=== PATIENT | female | born 1955 | race Hispanic/Latino ===

== ENCOUNTER 2017-04-10 08:35 | Inpatient (IN) | payer OTHER ==
[~2017-04-10] VITALS: Ht 160 cm; Wt 45.6 kg
[~2017-04-10 08:35] MED LIST: ATOR-2 PO; CHOL50004 PO; INSU100V12 SQ; LIRA0.6P SQ; LISI-617 PO; SERT50TA12 PO
[2017-04-10] MEDS ORDERED: SODIUM CHLORIDE 0.9% 1000ML 1,000 ML IV ONE ×2 (08:52→09:08)
[2017-04-10 08:56] LABS: MEAN CORPUSCULAR HEMOGLOBIN 28.2 pg (27.0-33.0); MEAN CORPUSCULAR HGB CONC 32.5 g/dL (32.0-36.0); PLATELET COUNT (AUTO) 331 K/uL (130-400); RED BLOOD CELL COUNT(AUTO) 3.91 MIL/uL (4.00-5.50); RED CELL DISTRIBUTION WIDTH 16.1 % (11.0-15.5); WHITE BLOOD COUNT (AUTO) 11.7 K/uL (4.8-10.8)
[2017-04-10] MEDS ORDERED: ACETAMINOPHEN-CODEINE 300/30MG TAB ONE (08:58)
[2017-04-10] MEDS ORDERED: PROMETHAZINE HCL 25 MG/ML 1ML AMPULE IM ONE (09:08)
[2017-04-10] MEDS ORDERED: ONDANSETRON HCL 4 MG/2 ML VIAL ONE ×2 (09:08→10:18)
[2017-04-10] MEDS ORDERED: SODIUM CHLORIDE 0.9% 500ML 500 ML IV ONE (09:09)
[2017-04-10 09:15] LABS: BAND NEUTROPHILS % (MANUAL) 3 % (0-2); LYMPHOCYTES % (MANUAL) 2 % (22-44); MAN.DIFF COMMENT-IMPRESSION MANUAL DIFFERENTIAL; MONOCYTES % (MANUAL) 3 % (2-9); PLATELET MORPHOLOGY COMMENT ADEQUATE; SEGMENTED NEUTROPHILS % 92 % (40-70)
[2017-04-10 09:20] LABS: APPEARANCE,URINE Clear (CLEAR); BILIRUBIN,URINE Negative (NEGATIVE); COLOR,URINE Yellow (YELLOW); GLUCOSE, URINE (UA) >=1000 mg/dL (NEGATIVE); KETONES,URINE >=80 mg/dL (NEGATIVE); LEUKOCYTE ESTERASE ,URINE Negative (NEGATIVE); NITRATE,URINE Negative (NEGATIVE); OCCULT BLOOD,URINE Negative (NEGATIVE); PH,URINE 5.5 (5.0-8.0); PROTEIN,URINE POS 1+ (NEGATIVE); UROBILINOGEN,URINE 0.2 mg/dL (0.2-1.0)
[2017-04-10 09:24] LABS: BACTERIA,URINE Rare /HPF (None Seen); RBC,URINE 0-1 /HPF (0-1); SQUAMOUS EPITHELIAL CELL,UR Rare /LPF (0-2)
[2017-04-10 09:42] LABS: CREATININE 0.8 mg/dL (0.5-1.5); POTASSIUM 3.2 mmol/L (3.5-5.1)
[2017-04-10 09:47] LABS: ALBUMIN 2.5 g/dL (3.5-5.0); BILIRUBIN,TOTAL 0.7 mg/dL (0.2-1.0); TOTAL PROTEIN, SERUM 7.5 g/dL (6.0-8.3)
[2017-04-10] MEDS ORDERED: ASPIRIN 325 MG TABLET ONE (10:18)
[2017-04-10] MEDS ORDERED: ENOXAPARIN SODIUM 40 MG/0.4 ML SYRINGE SQ ONE (10:18)
[2017-04-10] MEDS ORDERED: LEVOFLOXACIN 500 MG/D5W 100 ML 100 ML ONE (10:41)
[2017-04-10] MEDS: SODIUM CHLORIDE 0.9% 1000ML 1,000 ML IV SCH (11:09)
[2017-04-10] MEDS ORDERED: GUAIFENESIN-DM 200/20 MG 10 ML PO PRN (11:15)
[2017-04-10] MEDS: LEVOFLOXACIN 500 MG/D5W 100 ML 100 ML IV SCH (11:15)
[2017-04-10] MEDS: METRONIDAZOLE 500MG/100ML BAG 100 ML IV SCH (11:15)
[2017-04-10] MEDS ORDERED: ACETAMINOPHEN 325 MG TAB PO PRN ×2 (11:15)
[2017-04-10] MEDS ORDERED: MORPHINE SULFATE 2 MG/ML 1ML SYG IV PRN (11:15)
[2017-04-10] MEDS ORDERED: PROCHLORPERAZINE EDISYLATE 10 MG/2 ML VIAL IV PRN (12:30)
[2017-04-10 13:41] VITALS: BP 106/66
[2017-04-10] MEDS ORDERED: ONDA8TAB11 PO (14:04)
[2017-04-10] MEDS ORDERED: CIPR500S4 PO (14:04)
[2017-04-10] MEDS ORDERED: METR500T PO (14:04)
[2017-04-10] MEDS ORDERED: AMYL1CAP61 PO (14:04)
[2017-04-10] MEDS ORDERED: ASPI-1114 PO (14:04)
[2017-04-10] MEDS ORDERED: PROC10TA13 PO (14:04)
[2017-04-10] MEDS ORDERED: PANT40TA25 PO (14:04)
[2017-04-10] MEDS ORDERED: DIPH1TAB24 PO (14:04)
[2017-04-10 16:37] VITALS: BP 100/69
[2017-04-10] MEDS: SODIUM CHLORIDE 0.9% 10 ML VIAL IV SCH (18:49)
[2017-04-10] MEDS ORDERED: METRONIDAZOLE 500MG/100ML BAG 100 ML ONE (19:51)
[2017-04-10] MEDS: FAMOTIDINE/PF 20 MG/2 ML VIAL IV SCH (21:00)
[2017-04-10] MEDS: CARVEDILOL 3.125 MG TABLET PO SCH (21:00)
[2017-04-10 21:20] LABS: CREATINE KINASE MB 6.3 ng/mL (0.5-3.6)
[2017-04-10 23:29] VITALS: BP 107/74
[2017-04-11] MEDS: ACETAMINOPHEN-CODEINE 300/30MG TAB PO PRN ×2 (00:47→09:57)
[2017-04-11] MEDS: SODIUM CHLORIDE 0.9% 1000ML 1,000 ML IV SCH ×3 (00:48→17:27)
[2017-04-11 03:00] VITALS: BP 104/75
[2017-04-11] MEDS: METRONIDAZOLE 500MG/100ML BAG 100 ML IV SCH ×3 (03:16→19:38)
[2017-04-11 03:57] LABS: HEMATOCRIT 29.9 % (36-48); MEAN CORPUSCULAR HEMOGLOBIN 28.7 pg (27.0-33.0); MEAN CORPUSCULAR HGB CONC 32.9 g/dL (32.0-36.0); MEAN CORPUSCULAR VOLUME 87.4 fL (79-99); PLATELET COUNT (AUTO) 287 K/uL (130-400); RED BLOOD CELL COUNT(AUTO) 3.42 MIL/uL (4.00-5.50); RED CELL DISTRIBUTION WIDTH 16.2 % (11.0-15.5); WHITE BLOOD COUNT (AUTO) 12.2 K/uL (4.8-10.8)
[2017-04-11 04:09] LABS: CREATININE 0.5 mg/dL (0.5-1.5); POTASSIUM 3.1 mmol/L (3.5-5.1)
[2017-04-11 08:00] VITALS: BP 115/79
[2017-04-11] MEDS: FAMOTIDINE/PF 20 MG/2 ML VIAL IV SCH ×2 (09:50→20:24)
[2017-04-11] MEDS: ASPIRIN 325 MG TABLET PO SCH (09:51)
[2017-04-11] MEDS: CARVEDILOL 3.125 MG TABLET PO SCH ×2 (09:56→20:34)
[2017-04-11] MEDS: SODIUM CHLORIDE 0.9% 10 ML VIAL IV SCH ×3 (10:03→18:10)
[2017-04-11] MEDS: LEVOFLOXACIN 500 MG/D5W 100 ML 100 ML IV SCH (10:04)
[2017-04-11 10:53] LABS: CREATINE KINASE MB 4.1 ng/mL (0.5-3.6)
[2017-04-11 10:56] LABS: TROPONIN I 2.14 ng/mL (0.00-0.06)
[2017-04-11 11:45] VITALS: BP 109/73
[2017-04-11] MEDS: ONDANSETRON HCL 4 MG/2 ML VIAL IV PRN (12:40)
[2017-04-11] MEDS ORDERED: POTASSIUM CHLORIDE 20 MEQ ERTAB PO PRN (13:00)
[2017-04-11 13:18] LABS: CREATININE 0.7 mg/dL (0.5-1.5); POTASSIUM 3.9 mmol/L (3.5-5.1)
[2017-04-11] MEDS ORDERED: ONDANSETRON 4 MG TABLET PO SCH (14:00)
[2017-04-11] MEDS ORDERED: SERTRALINE HCL 50 MG TABLET ONE (15:25)
[2017-04-11] MEDS: SERTRALINE HCL 50 MG TABLET PO SCH (15:28)
[2017-04-11 15:54] VITALS: BP 93/63
[2017-04-11] MEDS: ONDANSETRON HCL 4 MG/2 ML VIAL IVP SCH (17:23)
[2017-04-11 20:10] VITALS: BP 97/65
[2017-04-11] MEDS: LORAZEPAM 2 MG/ML 1 ML VIAL IVP PRN (21:08)
[2017-04-12] VITALS (8 sets, daily range): BP systolic 86–103; BP diastolic 46–67
[2017-04-12] MEDS: ONDANSETRON HCL 4 MG/2 ML VIAL IVP SCH ×5 (00:30→23:54)
[2017-04-12] MEDS: SODIUM CHLORIDE 0.9% 1000ML 1,000 ML IV SCH (00:30)
[2017-04-12] MEDS: SODIUM CHLORIDE 0.9% 10 ML VIAL IV SCH ×3 (03:13→18:45)
[2017-04-12] MEDS: METRONIDAZOLE 500MG/100ML BAG 100 ML IV SCH ×3 (03:13→19:30)
[2017-04-12 06:19] LABS: HEMATOCRIT 32.9 % (36-48); MEAN CORPUSCULAR HEMOGLOBIN 29.3 pg (27.0-33.0); MEAN CORPUSCULAR HGB CONC 32.6 g/dL (32.0-36.0); MEAN CORPUSCULAR VOLUME 89.8 fL (79-99); PLATELET COUNT (AUTO) 264 K/uL (130-400); RED BLOOD CELL COUNT(AUTO) 3.66 MIL/uL (4.00-5.50); RED CELL DISTRIBUTION WIDTH 16.2 % (11.0-15.5); WHITE BLOOD COUNT (AUTO) 10.4 K/uL (4.8-10.8)
[2017-04-12 06:26] LABS: CREATININE 0.8 mg/dL (0.5-1.5); POTASSIUM 4.3 mmol/L (3.5-5.1)
[2017-04-12] MEDS ORDERED: LISINOPRIL 5 MG TABLET PO SCH ×2 (09:00→21:00)
[2017-04-12] MEDS ORDERED: PROCHLORPERAZINE 10 MG PO PRN (09:00)
[2017-04-12] MEDS: [UNRECOGNIZED DRUG - OTHER] PO SCH (09:00)
[2017-04-12] MEDS: **HM** VIT D3 5000 UNITS PO SCH (09:00)
[2017-04-12] MEDS: ASPIRIN 325 MG TABLET PO SCH (09:54)
[2017-04-12] MEDS: CARVEDILOL 3.125 MG TABLET PO SCH ×2 (09:57→21:00)
[2017-04-12] MEDS: FAMOTIDINE/PF 20 MG/2 ML VIAL IV SCH ×2 (09:57→21:36)
[2017-04-12] MEDS: ATORVASTATIN CALCIUM 40 MG TABLET PO SCH (10:00)
[2017-04-12] MEDS: LEVOFLOXACIN 500 MG/D5W 100 ML 100 ML IV SCH (11:05)
[2017-04-12] MEDS: LORAZEPAM 2 MG/ML 1 ML VIAL IVP PRN (11:13)
[2017-04-12] MEDS: DOCUSATE SODIUM 100 MG CAP PO SCH ×2 (12:05→21:36)
[2017-04-12] MEDS ORDERED: INSLAN SQ (15:25)
[2017-04-12] MEDS ORDERED: DEXTROSE 50%-WATER 50 ML DISP.SYRIN IV PRN (16:15)
[2017-04-12] MEDS ORDERED: GLUCAGON 1MG KIT 1 MG ML IM PRN (16:15)
[2017-04-12] MEDS ORDERED: SODIUM CHLORIDE 0.9% 250 ML IV ONE ×2 (16:43→19:26)
[2017-04-12] MEDS: INSULIN HUMULIN R 100 UNIT/ML 3ML SQ SCH ×2 (17:17→21:39)
[2017-04-13] MEDS: SODIUM CHLORIDE 0.9% 10 ML VIAL IV SCH ×2 (02:15→10:15)
[2017-04-13 03:00] VITALS: BP 92/58
[2017-04-13] MEDS: METRONIDAZOLE 500MG/100ML BAG 100 ML IV SCH ×3 (03:20→23:10)
[2017-04-13] MEDS: LORAZEPAM 2 MG/ML 1 ML VIAL IVP PRN (03:30)
[2017-04-13] MEDS: ONDANSETRON HCL 4 MG/2 ML VIAL IVP SCH ×3 (05:52→17:30)
[2017-04-13 06:08] LABS: HEMATOCRIT 27.3 % (36-48); MEAN CORPUSCULAR HEMOGLOBIN 29.6 pg (27.0-33.0); MEAN CORPUSCULAR HGB CONC 33.3 g/dL (32.0-36.0); MEAN CORPUSCULAR VOLUME 88.7 fL (79-99); PLATELET COUNT (AUTO) 203 K/uL (130-400); RED BLOOD CELL COUNT(AUTO) 3.08 MIL/uL (4.00-5.50); RED CELL DISTRIBUTION WIDTH 16.1 % (11.0-15.5); WHITE BLOOD COUNT (AUTO) 9.7 K/uL (4.8-10.8)
[2017-04-13] MEDS ORDERED: SODIUM CHLORIDE 0.9% 1000ML 1,000 ML IV ONE (06:10)
[2017-04-13 06:13] LABS: CREATININE 0.8 mg/dL (0.5-1.5)
[2017-04-13] MEDS: INSULIN HUMULIN R 100 UNIT/ML 3ML SQ SCH ×4 (07:30→21:00)
[2017-04-13 07:43] LABS: POTASSIUM 2.7 mmol/L (3.5-5.1)
[2017-04-13 08:00] VITALS: BP 108/61
[2017-04-13] MEDS: **HM** VIT D3 5000 UNITS PO SCH (09:00)
[2017-04-13] MEDS ORDERED: INSULIN GLARGINE 100 UNITS/ML 10 ML VIAL SQ SCH (09:00)
[2017-04-13] MEDS: DOCUSATE SODIUM 100 MG CAP PO SCH ×2 (09:06→21:00)
[2017-04-13] MEDS: SERTRALINE HCL 50 MG TABLET PO SCH (09:06)
[2017-04-13] MEDS: ASPIRIN 325 MG TABLET PO SCH (09:06)
[2017-04-13] MEDS: ATORVASTATIN CALCIUM 40 MG TABLET PO SCH (09:06)
[2017-04-13] MEDS: FAMOTIDINE/PF 20 MG/2 ML VIAL IV SCH ×2 (09:07→23:07)
[2017-04-13] MEDS: LIDOCAINE HCL-MPF 1% 2ML VIAL IVP PRN ×2 (09:08→14:08)
[2017-04-13] MEDS: POTASSIUM CHLORIDE 20MEQ/100ML 100 ML IV PRN ×2 (09:09→14:08)
[2017-04-13 11:00] VITALS: BP 102/64
[2017-04-13] MEDS: [UNRECOGNIZED DRUG - OTHER] PO SCH (14:08)
[2017-04-13] MEDS: LEVOFLOXACIN 500 MG/D5W 100 ML 100 ML IV SCH (14:21)
[2017-04-13 16:00] VITALS: BP 100/63
[2017-04-13 19:50] VITALS: BP 92/60
[2017-04-13] MEDS: INSULIN GLARGINE 100 UNITS/ML 10 ML VIAL SQ SCH (21:00)
[2017-04-13 23:23] VITALS: BP 103/64
[2017-04-14] MEDS: ONDANSETRON HCL 4 MG/2 ML VIAL IVP SCH ×4 (01:09→17:36)
[2017-04-14 04:02] LABS: HEMATOCRIT 26.4 % (36-48); MEAN CORPUSCULAR HEMOGLOBIN 28.7 pg (27.0-33.0); MEAN CORPUSCULAR HGB CONC 33.2 g/dL (32.0-36.0); MEAN CORPUSCULAR VOLUME 86.6 fL (79-99); PLATELET COUNT (AUTO) 170 K/uL (130-400); RED BLOOD CELL COUNT(AUTO) 3.05 MIL/uL (4.00-5.50); RED CELL DISTRIBUTION WIDTH 15.9 % (11.0-15.5); WHITE BLOOD COUNT (AUTO) 5.4 K/uL (4.8-10.8)
[2017-04-14 04:05] VITALS: BP 93/53
[2017-04-14 04:18] LABS: CREATININE 0.6 mg/dL (0.5-1.5)
[2017-04-14 04:26] LABS: POTASSIUM 2.4 mmol/L (3.5-5.1)
[2017-04-14] MEDS: METRONIDAZOLE 500MG/100ML BAG 100 ML IV SCH ×3 (05:33→20:12)
[2017-04-14] MEDS: INSULIN HUMULIN R 100 UNIT/ML 3ML SQ SCH ×4 (06:26→21:00)
[2017-04-14] MEDS: POTASSIUM CHLORIDE 20MEQ/100ML 100 ML IV PRN ×3 (06:27→14:17)
[2017-04-14 08:00] VITALS: BP 94/64
[2017-04-14] MEDS: ATORVASTATIN CALCIUM 40 MG TABLET PO SCH (09:00)
[2017-04-14] MEDS: ASPIRIN 325 MG TABLET PO SCH (09:00)
[2017-04-14] MEDS: **HM** VIT D3 5000 UNITS PO SCH (09:00)
[2017-04-14] MEDS: [UNRECOGNIZED DRUG - OTHER] PO SCH (09:00)
[2017-04-14] MEDS: DOCUSATE SODIUM 100 MG CAP PO SCH ×2 (09:00→20:13)
[2017-04-14] MEDS: INSULIN GLARGINE 100 UNITS/ML 10 ML VIAL SQ SCH ×2 (09:00→21:00)
[2017-04-14] MEDS: SERTRALINE HCL 50 MG TABLET PO SCH (09:00)
[2017-04-14] MEDS: FAMOTIDINE/PF 20 MG/2 ML VIAL IV SCH ×2 (10:28→20:12)
[2017-04-14] MEDS: LEVOFLOXACIN 500 MG/D5W 100 ML 100 ML IV SCH (10:29)
[2017-04-14] MEDS: SODIUM CHLORIDE 0.9% 10 ML VIAL IV SCH ×2 (10:52→18:01)
[2017-04-14] MEDS: ONDANSETRON HCL 4 MG/2 ML VIAL IV PRN (10:52)
[2017-04-14 11:00] VITALS: BP 87/54
[2017-04-14] MEDS ORDERED: DEXAMETHASONE SOD PHOSPHATE 4 MG/ML 1ML VIAL IVP SCH (13:00)
[2017-04-14 16:00] VITALS: BP 97/60
[2017-04-14 19:52] LABS: CREATININE 0.6 mg/dL (0.5-1.5)
[2017-04-14 20:25] VITALS: BP 76/45
[2017-04-14 21:18] VITALS: BP 80/54
[2017-04-14] MEDS ORDERED: SODIUM CHLORIDE 0.9% 1000ML 1,000 ML IV SCH (22:00)
[2017-04-15] VITALS (14 sets, daily range): BP systolic 83–118; BP diastolic 47–69
[2017-04-15] MEDS: ONDANSETRON HCL 4 MG/2 ML VIAL IVP SCH ×4 (00:12→17:10)
[2017-04-15] MEDS: SODIUM CHLORIDE 0.9% 10 ML VIAL IV SCH ×3 (02:15→17:10)
[2017-04-15] MEDS: METRONIDAZOLE 500MG/100ML BAG 100 ML IV SCH ×3 (04:13→19:15)
[2017-04-15 05:12] LABS: HEMATOCRIT 25.9 % (36-48)
[2017-04-15 05:17] LABS: CREATININE 0.6 mg/dL (0.5-1.5); POTASSIUM 3.4 mmol/L (3.5-5.1)
[2017-04-15] MEDS: INSULIN HUMULIN R 100 UNIT/ML 3ML SQ SCH ×4 (07:16→21:00)
[2017-04-15] MEDS: ONDANSETRON HCL 4 MG/2 ML VIAL IV PRN (08:30)
[2017-04-15] MEDS: **HM** VIT D3 5000 UNITS PO SCH (08:31)
[2017-04-15] MEDS: FAMOTIDINE/PF 20 MG/2 ML VIAL IV SCH ×2 (08:40→21:11)
[2017-04-15] MEDS: ATORVASTATIN CALCIUM 40 MG TABLET PO SCH (08:41)
[2017-04-15] MEDS: SERTRALINE HCL 50 MG TABLET PO SCH (08:43)
[2017-04-15] MEDS: DOCUSATE SODIUM 100 MG CAP PO SCH (08:43)
[2017-04-15] MEDS: OLANZAPINE 5 MG TAB PO SCH (08:44)
[2017-04-15] MEDS: [UNRECOGNIZED DRUG - OTHER] PO SCH (08:44)
[2017-04-15] MEDS: ASPIRIN 325 MG TABLET PO SCH (09:00)
[2017-04-15] MEDS ORDERED: SODIUM BICARBONATE 650 MG TAB PO SCH ×2 (09:45→21:00)
[2017-04-15] MEDS ORDERED: PROMETHAZINE HCL 25 MG/ML 1ML AMPULE IM PRN (10:00)
[2017-04-15] MEDS ORDERED: METOCLOPRAMIDE 10 MG/2 ML VIAL IVP SCH ×2 (11:30→12:00)
[2017-04-15] MEDS ORDERED: PHARMACY COMMUNICATION MISC SCH (12:45)
[2017-04-15 13:02] LABS: ABG BASE EXCESS -13.7 mmol/L (-2.0-3.0); ABG HCO3 9.1 mmol/L (21.0-28.0); ABG OXYGEN SATURATION 98.4 % (95.0-99.0); ABG PCO2 < 18 mmHg (32-45)
[2017-04-15] MEDS: SODIUM CHLORIDE 0.9% 1000ML 1,000 ML IV SCH ×5 (13:04→20:54)
[2017-04-15] MEDS: INSULIN GLARGINE 100 UNITS/ML 10 ML VIAL SQ SCH ×2 (13:26→21:00)
[2017-04-15] MEDS: SODIUM BICARB 8.4% 50ML SYRING 150 MEQ in DEXTROSE 5%-WATER 1,000 ML IVP SCH (13:33)
[2017-04-15] MEDS: LEVOFLOXACIN 500 MG/D5W 100 ML 100 ML IV SCH (16:56)
[2017-04-15] MEDS ORDERED: INSULIN REGULAR, HUMAN 3ML 100 UNIT in SODIUM CHLORIDE 0.9% 99 ML IV STA ×2 (17:15)
[2017-04-15] MEDS ORDERED: INSULIN REGULAR, HUMAN 3ML 100 UNIT in SODIUM CHLORIDE 0.9% 99 ML IV SCH ×2 (17:45)
[2017-04-15] MEDS ORDERED: SODIUM CHLORIDE 23.4% 30ML VL 154 MEQ in DEXTROSE 10%-WATER 961.5 ML IV SCH (20:15)
[2017-04-15 20:58] LABS: CREATININE 0.7 mg/dL (0.5-1.5); MAGNESIUM 1.2 mg/dL (1.80-2.40)
[2017-04-15 21:03] LABS: POTASSIUM 2.2 mmol/L (3.5-5.1)
[2017-04-15] MEDS: POTASSIUM CHLORIDE 20MEQ/100ML 100 ML IV PRN ×2 (21:08→22:52)
[2017-04-15] MEDS ORDERED: DEXTROSE 10%-WATER 1,000 ML IV SCH (21:15)
[2017-04-16] VITALS (21 sets, daily range): BP systolic 80–122; BP diastolic 41–65
[2017-04-16] MEDS ORDERED: MAGNESIUM 4GM PREMIX 100ML 100 ML IV PRN (00:15)
[2017-04-16] MEDS: ONDANSETRON HCL 4 MG/2 ML VIAL IVP SCH ×3 (00:16→11:59)
[2017-04-16] MEDS: MAGNESIUM 2GM PREMIX 50ML 50 ML IV PRN ×2 (00:18→04:41)
[2017-04-16] MEDS: POTASSIUM CHLORIDE 20MEQ/100ML 100 ML IV PRN ×4 (01:01→09:36)
[2017-04-16 01:17] LABS: CREATININE 0.5 mg/dL (0.5-1.5)
[2017-04-16 01:18] LABS: POTASSIUM 2.8 mmol/L (3.5-5.1)
[2017-04-16] MEDS: SODIUM CHLORIDE 0.9% 10 ML VIAL IV SCH ×3 (02:15→16:58)
[2017-04-16] MEDS: SODIUM CHLORIDE 0.9% 1000ML 1,000 ML IV SCH ×4 (02:20→12:04)
[2017-04-16] MEDS: METRONIDAZOLE 500MG/100ML BAG 100 ML IV SCH (02:22)
[2017-04-16 03:54] LABS: HEMATOCRIT 23.2 % (36-48); MEAN CORPUSCULAR HEMOGLOBIN 28.6 pg (27.0-33.0); MEAN CORPUSCULAR HGB CONC 33.7 g/dL (32.0-36.0); MEAN CORPUSCULAR VOLUME 84.9 fL (79-99); PLATELET COUNT (AUTO) 127 K/uL (130-400); RED BLOOD CELL COUNT(AUTO) 2.74 MIL/uL (4.00-5.50); RED CELL DISTRIBUTION WIDTH 16.3 % (11.0-15.5); WHITE BLOOD COUNT (AUTO) 8.6 K/uL (4.8-10.8)
[2017-04-16 04:05] LABS: CREATININE 0.5 mg/dL (0.5-1.5); MAGNESIUM 1.9 mg/dL (1.80-2.40)
[2017-04-16 04:08] LABS: % IRON SATURATION 54.7 % (22-44)
[2017-04-16] MEDS: SODIUM BICARB 8.4% 50ML SYRING 150 MEQ in DEXTROSE 5%-WATER 1,000 ML IVP SCH (04:20)
[2017-04-16] MEDS: INSULIN HUMULIN R 100 UNIT/ML 3ML SQ SCH ×4 (05:18→20:29)
[2017-04-16] MEDS: METOCLOPRAMIDE 10 MG/2 ML VIAL IVP SCH ×4 (06:39→21:41)
[2017-04-16 08:40] LABS: CREATININE 0.6 mg/dL (0.5-1.5); MAGNESIUM 2.3 mg/dL (1.80-2.40); POTASSIUM 3.4 mmol/L (3.5-5.1)
[2017-04-16] MEDS ORDERED: COMPOUND IV MISC 1 EACH IVSOLN MISC PRN (09:00)
[2017-04-16] MEDS: **HM** VIT D3 5000 UNITS PO SCH (09:00)
[2017-04-16] MEDS: IRON SUCROSE COMPLEX 100 MG in SODIUM CHLORIDE 0.9% 50 ML IV SCH (09:35)
[2017-04-16] MEDS: [UNRECOGNIZED DRUG - OTHER] PO SCH (09:37)
[2017-04-16] MEDS: ASPIRIN 325 MG TABLET PO SCH (09:37)
[2017-04-16] MEDS: ATORVASTATIN CALCIUM 40 MG TABLET PO SCH (09:37)
[2017-04-16] MEDS: FAMOTIDINE/PF 20 MG/2 ML VIAL IV SCH ×2 (09:38→21:41)
[2017-04-16] MEDS: OLANZAPINE 5 MG TAB PO SCH (09:38)
[2017-04-16] MEDS: SERTRALINE HCL 50 MG TABLET PO SCH (09:40)
[2017-04-16] MEDS: INSULIN GLARGINE 100 UNITS/ML 10 ML VIAL SQ SCH ×2 (09:45→21:37)
[2017-04-16] MEDS: LEVOFLOXACIN 500 MG/D5W 100 ML 100 ML IV SCH (11:56)
[2017-04-16] MEDS ORDERED: ONDANSETRON HCL 4 MG/2 ML VIAL IVP PRN (12:30)
[2017-04-16] MEDS ORDERED: SODIUM CHLORIDE 0.9% 1000ML 1,000 ML IV SCH (16:45)
[2017-04-16] MEDS ORDERED: LOPERAMIDE HCL 1 MG/5 ML UNIT DOSE CUP PO PRN (17:30)
[2017-04-16] MEDS: SODIUM BICARBONATE 650 MG TAB PO SCH (21:41)
[2017-04-17] MEDS: SODIUM CHLORIDE 0.9% 1000ML 1,000 ML IV SCH (02:00)
[2017-04-17 02:15] VITALS: BP_SYST 104; BP_SYST 107; BP_SYST 109; BP_DIAS 51; BP_DIAS 59; BP_DIAS 61
[2017-04-17 03:54] VITALS: BP 112/65
[2017-04-17 04:15] LABS: HEMATOCRIT 24.9 % (36-48); MEAN CORPUSCULAR HGB CONC 34.4 g/dL (32.0-36.0); MEAN CORPUSCULAR VOLUME 84.1 fL (79-99); PLATELET COUNT (AUTO) 157 K/uL (130-400); RED BLOOD CELL COUNT(AUTO) 2.96 MIL/uL (4.00-5.50); WHITE BLOOD COUNT (AUTO) 8.8 K/uL (4.8-10.8)
[2017-04-17 04:49] LABS: CREATININE 0.5 mg/dL (0.5-1.5); MAGNESIUM 1.6 mg/dL (1.80-2.40); PHOSPHORUS 0.5 mg/dL (2.5-4.9)
[2017-04-17 04:52] LABS: POTASSIUM 2.5 mmol/L (3.5-5.1)
[2017-04-17] MEDS: POTASSIUM CHLORIDE 20MEQ/100ML 100 ML IV PRN ×2 (05:04→12:33)
[2017-04-17 05:13] LABS: B-TYPE NATRIURETIC PEPTIDE 1120 pg/mL (0-100)
[2017-04-17] MEDS: LIDOCAINE HCL-MPF 1% 2ML VIAL IVP PRN ×2 (05:15→12:33)
[2017-04-17] MEDS: INSULIN HUMULIN R 100 UNIT/ML 3ML SQ SCH ×3 (05:55→20:05)
[2017-04-17 07:00] VITALS: BP 97/60
[2017-04-17] MEDS: INSULIN GLARGINE 100 UNITS/ML 10 ML VIAL SQ SCH (09:00)
[2017-04-17] MEDS: **HM** VIT D3 5000 UNITS PO SCH (09:00)
[2017-04-17] MEDS: ATORVASTATIN CALCIUM 40 MG TABLET PO SCH (10:26)
[2017-04-17] MEDS: ASPIRIN 325 MG TABLET PO SCH (10:26)
[2017-04-17] MEDS: SODIUM BICARBONATE 650 MG TAB PO SCH ×2 (10:26→20:07)
[2017-04-17] MEDS: SERTRALINE HCL 50 MG TABLET PO SCH (10:26)
[2017-04-17] MEDS: FAMOTIDINE/PF 20 MG/2 ML VIAL IV SCH ×2 (10:26→20:07)
[2017-04-17] MEDS: OLANZAPINE 5 MG TAB PO SCH (10:26)
[2017-04-17] MEDS: [UNRECOGNIZED DRUG - OTHER] PO SCH (10:26)
[2017-04-17] MEDS: METOCLOPRAMIDE 10 MG/2 ML VIAL IVP SCH ×4 (10:47→20:07)
[2017-04-17] MEDS: LEVOFLOXACIN 500 MG/D5W 100 ML 100 ML IV SCH (10:47)
[2017-04-17 11:00] VITALS: BP 90/56
[2017-04-17] MEDS: MAGNESIUM 2GM PREMIX 50ML 50 ML IV SCH (11:03)
[2017-04-17] MEDS: IRON SUCROSE COMPLEX 100 MG in SODIUM CHLORIDE 0.9% 50 ML IV SCH (14:58)
[2017-04-17 15:43] VITALS: BP 94/59
[2017-04-17] MEDS ORDERED: LOPERAMIDE HCL 2 MG CAP PO ONE (17:23)
[2017-04-17 20:00] VITALS: BP 93/59
[2017-04-17] MEDS: MIDODRINE HCL 5 MG TABLET PO SCH (20:07)
[2017-04-17] MEDS: SODIUM CHLORIDE 0.9% 10 ML VIAL IV SCH (20:07)
[2017-04-18] VITALS (7 sets, daily range): BP systolic 92–106; BP diastolic 57–63
[2017-04-18] MEDS: SODIUM CHLORIDE 0.9% 10 ML VIAL IV SCH ×2 (02:32→20:42)
[2017-04-18 04:13] LABS: CREATININE 0.5 mg/dL (0.5-1.5); MAGNESIUM 1.7 mg/dL (1.80-2.40)
[2017-04-18] MEDS: LIDOCAINE HCL-MPF 1% 2ML VIAL IVP PRN (04:33)
[2017-04-18] MEDS: POTASSIUM CHLORIDE 10% ELIXIR 20 MEQ/15 ML UDCUP PO PRN ×3 (04:33→14:45)
[2017-04-18] MEDS: POTASSIUM CHLORIDE 20MEQ/100ML 100 ML IV PRN (04:33)
[2017-04-18] MEDS: INSULIN HUMULIN R 100 UNIT/ML 3ML SQ SCH ×3 (05:33→20:44)
[2017-04-18] MEDS: IRON SUCROSE COMPLEX 100 MG in SODIUM CHLORIDE 0.9% 50 ML IV SCH (09:00)
[2017-04-18] MEDS: **HM** VIT D3 5000 UNITS PO SCH (09:00)
[2017-04-18] MEDS: MAGNESIUM 2GM PREMIX 50ML 50 ML IV SCH (09:10)
[2017-04-18] MEDS: [UNRECOGNIZED DRUG - OTHER] PO SCH (09:11)
[2017-04-18] MEDS: SODIUM BICARBONATE 650 MG TAB PO SCH ×2 (09:11→19:10)
[2017-04-18] MEDS: ASPIRIN 325 MG TABLET PO SCH (09:11)
[2017-04-18] MEDS: MIDODRINE HCL 5 MG TABLET PO SCH ×3 (09:12→20:43)
[2017-04-18] MEDS: ATORVASTATIN CALCIUM 40 MG TABLET PO SCH (09:12)
[2017-04-18] MEDS: METOCLOPRAMIDE 10 MG/2 ML VIAL IVP SCH ×3 (09:12→20:42)
[2017-04-18] MEDS: SERTRALINE HCL 50 MG TABLET PO SCH (09:12)
[2017-04-18] MEDS: FAMOTIDINE/PF 20 MG/2 ML VIAL IV SCH ×2 (09:13→20:43)
[2017-04-18] MEDS ORDERED: LOPERAMIDE HCL 2 MG CAP PO ONE (09:44)
[2017-04-18] MEDS ORDERED: POTASSIUM PHOS 15 mMOL+NS250ML 250 ML IV SCH (09:45)
[2017-04-18] MEDS ORDERED: MAGNESIUM 4GM PREMIX 100ML 100 ML IV SCH (09:45)
[2017-04-18] MEDS: POTASSIUM PHOS 15 mMOL+NS250ML 250 ML IV SCH (09:58)
[2017-04-18] MEDS: LEVOFLOXACIN 500 MG/D5W 100 ML 100 ML IV SCH (14:57)
[2017-04-18] MEDS: ACETAMINOPHEN-CODEINE 300/30MG TAB PO PRN (20:44)
[2017-04-19] MEDS: SODIUM CHLORIDE 0.9% 10 ML VIAL IV SCH (01:18)
[2017-04-19 03:30] VITALS: BP 104/62
[2017-04-19 04:33] LABS: CREATININE 0.4 mg/dL (0.5-1.5); MAGNESIUM 1.8 mg/dL (1.80-2.40); PHOSPHORUS 1.9 mg/dL (2.5-4.9); POTASSIUM 3.7 mmol/L (3.5-5.1)
[2017-04-19] MEDS: INSULIN HUMULIN R 100 UNIT/ML 3ML SQ SCH ×3 (06:11→16:30)
[2017-04-19] MEDS ORDERED: LOPERAMIDE HCL 2 MG CAP PO ONE (06:46)
[2017-04-19] MEDS: METOCLOPRAMIDE 10 MG/2 ML VIAL IVP SCH (06:48)
[2017-04-19] MEDS: INSULIN GLARGINE 100 UNITS/ML 10 ML VIAL SQ SCH (06:53)
[2017-04-19 07:00] VITALS: BP 98/62
[2017-04-19] MEDS: **HM** VIT D3 5000 UNITS PO SCH (08:06)
[2017-04-19] MEDS: IRON SUCROSE COMPLEX 100 MG in SODIUM CHLORIDE 0.9% 50 ML IV SCH (09:00)
[2017-04-19] MEDS: ATORVASTATIN CALCIUM 40 MG TABLET PO SCH (09:15)
[2017-04-19] MEDS: ASPIRIN 325 MG TABLET PO SCH (09:15)
[2017-04-19] MEDS: SERTRALINE HCL 50 MG TABLET PO SCH (09:15)
[2017-04-19] MEDS: SODIUM BICARBONATE 650 MG TAB PO SCH (09:15)
[2017-04-19] MEDS: MIDODRINE HCL 5 MG TABLET PO SCH ×2 (09:15→14:19)
[2017-04-19] MEDS: [UNRECOGNIZED DRUG - OTHER] PO SCH (09:15)
[2017-04-19] MEDS: FAMOTIDINE/PF 20 MG/2 ML VIAL IV SCH (09:15)
[2017-04-19] MEDS ORDERED: POTASSIUM PHOS 15 mMOL+NS250ML 250 ML IV SCH (09:30)
[2017-04-19] MEDS ORDERED: FERS325 PO (09:40)
[2017-04-19] MEDS ORDERED: Midodrine Hcl PO (09:40)
[2017-04-19 11:00] VITALS: BP 96/56
[2017-04-19] MEDS: LEVOFLOXACIN 500 MG/D5W 100 ML 100 ML IV SCH (11:12)
[2017-04-19] MEDS ORDERED: HEPARIN SODIUM/PF 100UNIT/ML 5ML SYRINGE IV SCH (14:45)
[2017-04-19] MEDS: POTASSIUM PHOS 15 mMOL+NS250ML 250 ML IV SCH (15:07)
== END 2017-04-19 18:50 | disposition home or self-care (01) | DRG 280 ==
LOC: EDH 08:35 → OBSVTOIN 11:09 → EDHIP 11:09 → 3BH 22:22 → 2CH 04-15 13:59 → 3BH 04-16 17:37
PROVIDERS: ADMIT Family Medicine; ATTEND Family Medicine
DX: I21.4 Non-ST elevation (NSTEMI) myocardial infarction (principal); E11.10 Type 2 diabetes mellitus with ketoacidosis without coma; I50.41 Acute combined systolic (congestive) and diastolic (congestive) heart failure; E87.2 Acidosis; C78.7 Secondary malignant neoplasm of liver and intrahepatic bile duct; I95.89 Other hypotension; E44.0 Moderate protein-calorie malnutrition; I11.0 Hypertensive heart disease with heart failure; I50.22 Chronic systolic (congestive) heart failure; B96.1 Klebsiella pneumoniae [K. pneumoniae] as the cause of diseases classified elsewhere; N39.0 Urinary tract infection, site not specified; Z68.1 Body mass index [BMI] 19.9 or less, adult; E11.65 Type 2 diabetes mellitus with hyperglycemia; I25.5 Ischemic cardiomyopathy; R00.0 Tachycardia, unspecified; T45.1X5A Adverse effect of antineoplastic and immunosuppressive drugs, initial encounter; E87.6 Hypokalemia; F41.9 Anxiety disorder, unspecified; E78.00 Pure hypercholesterolemia, unspecified; E78.5 Hyperlipidemia, unspecified; E86.0 Dehydration; F32.9 Major depressive disorder, single episode, unspecified; G89.4 Chronic pain syndrome; I25.10 Atherosclerotic heart disease of native coronary artery without angina pectoris; D63.8 Anemia in other chronic diseases classified elsewhere; Z51.11 Encounter for antineoplastic chemotherapy; Z88.0 Allergy status to penicillin; I25.2 Old myocardial infarction; Z79.82 Long term (current) use of aspirin; Z85.038 Personal history of other malignant neoplasm of large intestine; Z90.710 Acquired absence of both cervix and uterus; Z90.49 Acquired absence of other specified parts of digestive tract; Z90.411 Acquired partial absence of pancreas; Z83.3 Family history of diabetes mellitus; Z82.49 Family history of ischemic heart disease and other diseases of the circulatory system; Z82.3 Family history of stroke
CPT/HCPCS: 36415; 36600; 71045; 71046; 76700; 80048; 80053; 81001; 82009; 82550; 82553; 82728; 82803; 82947; 82948; 83540; 83550; 83605; 83690; 83735; 83874; 83880; 84100; 84132; 84484; 85025; 85027; 87040; 87507; 87804; 93005; 93306; 99291; J1100; J1642; J1650; J1756; J1815; J1956; J2060; J2405; J2550; J2765; J3475; J3480; J3490; J7030; J7040; J7070; J7131